=== PATIENT | female | born 1935 | race Caucasian/White ===

== ENCOUNTER → 2018-01-17 | Outpatient (CLI) | payer OTHER, BC ==
[~2018-01-17] VITALS: Ht 154.9 cm; Wt 63.0 kg
[~2018-01-17] MED LIST: ADULT LOW DOSE81 MG PO; BACTRIM DS TAB1 EACH PO; CO Q-10100 MG PO; FISHOIL; FLEXERIL PO; LISINOPRIL20 MG PO; MEDROL DOSPAK21 TAB PO; NORCO 5-325 TA1 EACH PO; PAXIL10 MG PO; VITAMIN B-12500 MCG PO; VITAMIN E400 UNIT PO; VYTORIN 10-101 EACH PO; Vitamin D3 PO
--- NOTE | ~2018-01-17 | HPC ---
[facility] [place] [address] PAIN MANAGEMENT CONSULTATION Name: CHUCKY VILLEDA Room #: REG CHITO SherlyBritanyJosianeBritany#: [id number] Admission: 01/17/18 Attend Phys: Bertrand Smith MD Discharge: Date of : 37 Report #: [id number] THIS REPORT FOR: //name// CC: Bertrand Hough DATE OF SERVICE: 01/17/2018 FOLLOWUP HISTORY: The patient is an 82-year-old female who has been seen in the pain clinic in the past because of lumbar radicular pain. She has pain in her low back with pain that radiates down to the left side. It involves her leg in the area of ankle. She rates it as a 9/10. Describes it as throbbing, shooting, stabbing, constant, rhythmic pain. As you may recall, the patient injured her ankle when she was returning [employer] came back to her neighbors. She has been having pain since she woke up in that following morning. Notes that standing, walking, lying down can be quite problematic. It involves the left lower back with pain radiating down to the left leg with weakness, sensory changes and pain. The patient has returned today with a desire to undergo an epidural steroid injection, which she experienced in the past was helpful. ALLERGIES: No known drug allergies. MEDICATIONS: Bactrim-DS, the patient had kidney stones takes this to prevent infections, CoQ10, 100 mg, aspirin 81 mg, vitamin D3 1000 units daily, Vytorin 10/10, vitamin B12 500 mcg, Paxil 10 mg, Zestril 20 mg. PAIN CLINIC ASSESSMENT/PQRS: 1. History of osteoarthritis involving her low back. The patient is not being treated for rheumatoid arthritis. 2. Height 5 feet 1 inch, weight 139 pounds, BMI is 26. 3. Vital signs: Blood pressure 138/75, respirations 16, room air saturation 98%, pulse 72. Pain intensity 10/30. 4. Fall risk. The patient has not fallen in the last 3 months. 5. Blood thinner. The patient is not on a blood thinning medication. 6. Hypertension. The patient has been treated for hypertension. 7. Opioids: Greater than 6 weeks. The patient is not receiving opioids on a regular basis other than from the pain clinic. 8. Risk assessment tool, low for opioid use. 9. Functional assessment tool . 10. Recreational drug use. The patient denies use of recreational drugs. 11. Tobacco: The patient has never smoked. 12. Alcohol. The patient drinks an occasional glass of wine. PHYSICAL EXAMINATION: GENERAL: The patient is a well-developed, well-nourished 82-year-old female who is alert and oriented x 3. Affect is appropriate. [place] [address] PAIN MANAGEMENT CONSULTATION Name: JERRY VILLEDATA Micah [facility] #: [facility] [id number] Admission: 01/17/18 Attend Phys: Bertrand Smith MD Discharge: Date of : 37 Report #: [id number] HEENT: Normocephalic, atraumatic. Extraocular eye muscles intact. Sclerae nonicteric. Mucous membranes are moist. Hearing is within normal limits. NECK: Without JVD or adenopathy. No bruits. LUNGS: Clear to auscultation without rales or rhonchi. HEART: Regular rate. MUSCULOSKELETAL: Judged to be -5/5 for the major muscle groups in the upper extremity. The patient is without significant scoliosis, kyphosis or lordosis. Lower extremity muscle strength -5/5 for the lower extremities on the right and 4+ on the left lower extremity. The patient experiencing pain that radiates down into her buttocks to the left side of her leg and posterior involving the leg down into her ankle in the L5-S1 distribution. IMPRESSION: 1. Lumbar radiculopathy, L5-S1 distribution similar to that which the patient had experienced about 8 years ago. 2. History of renal stones. 3. Hypertension. 4. Hypercholesterolemia. RECOMMENDATIONS: We discussed treatment options with the patient. They include but are not limited to infection, increased muscle soreness, headache, bleeding, worsening pain, no improvement in pain and the patient elects to proceed. PROCEDURE NOTE: The patient was taken to the procedure area. She was assisted in getting on the examination table. A pillow was placed under her abdomen to bolster improve her positioning. Fluoroscopy using anterior, posterior as well as lateral viewing were implemented. The patient's back had been sterilely prepped with a Betadine solution. A 25-gauge needle was then advanced into the L5-S1 area to anesthetize it. A 17-gauge Tuohy with loss of resistance technique using the left paraspinal approach was undertaken at the appropriate placement 0.25% bupivacaine was infiltrated. A total of 80 mg Depo-Medrol, 40 mg triamcinolone and 2 mL of 0.25% bupivacaine was injected. The patient tolerated the procedure well. There were no complications. Eight seconds fluoroscopy time was used. The patient had a pain score of 7 at the time of discharge. She will follow up in the future as needed. We would like to thank you for letting us participate in her care. We hope she continues to improve. By: [id number] MD aurelia Camargo
[2018-01-17 13:28] VITALS: BP 138/74
== END | disposition home or self-care (01) ==
LOC: PAIN 01-16 10:10
DX: M54.16 Radiculopathy, lumbar region (principal); G89.29 Other chronic pain; I10 Essential (primary) hypertension; E78.00 Pure hypercholesterolemia, unspecified; Z87.442 Personal history of urinary calculi; Z98.890 Other specified postprocedural states; Z79.899 Other long term (current) drug therapy; Z79.82 Long term (current) use of aspirin

== ENCOUNTER → 2018-02-02 | Outpatient (CLI) | payer OTHER, BC ==
[~2018-02-02] VITALS: Ht 154.9 cm; Wt 63.4 kg
--- NOTE | ~2018-02-02 | HPC ---
[facility] [place] [address] PAIN MANAGEMENT CONSULTATION Name: CHUCKY VILLEDA Room #: REG [facility] SherlyBritanyJosiane.#: [id number] Admission: 02/02/18 Attend Phys: Bertrand Smith MD Discharge: Date of : 37 Report #: [id number] THIS REPORT FOR: //name// CC: Bertrand Hough DATE OF SERVICE: 02/02/2018 CHIEF COMPLAINT: Here for an injection in the low back. My pain has returned. HISTORY: The patient is an 82-year-old female who has been followed in the pain clinic because of lumbar radiculopathy. She has undergone epidural steroid injections and gleaned benefits from these. She returns today indicating that she is having some recurrence of pain involving the left leg with pain that is radiating down into the ankle. Notes that her pain has been problematic since 07/2017, involves her low back, left leg and encompasses her left ankle. As you may recall, she was playing a game of [employer]. She took the [employer] game back to the neighbors. When she woke up, the following morning, she noticed increased pain and discomfort, which has continued to be problematic. Rates it as an 8/10. Notes that standing, walking and lying down can exacerbate her pain, sitting improves the pain. There is arrhythmic stabbing, constant discomfort, which she has been experiencing. She has returned today with a desire to undergo another epidural steroid injection. Gleaned greater than 50% improvement at the last injection. ALLERGIES: No known drug allergies. MEDICATIONS: Bactrim-DS, CoQ10, 100 mcg, aspirin 81 mg, vitamin D3 1000 units, Vytorin 10/10, vitamin B12 500 mcg, Paxil 10 mg, Zestril 20 mg. PAIN CLINIC ASSESSMENT/PQRS: 1. History of osteoarthritis. The patient has some arthritic pain involving her low back. She has not been treated for rheumatoid arthritis. 2. Height 5 feet 1 inch, weight 139 pounds, BMI is 26.4. 3. Vital signs: Blood pressure 159/76, pulse 70, respiratory rate 16, room air saturation 98%. 4. Pain intensity 09/29. 5. Fall risk. The patient has not fallen in the last 3 months. 6. Blood thinner. The patient is not on a blood thinning medication. 7. Hypertension. The patient has been treated for hypertension. 8. Opioid therapy greater than 6 weeks. The patient is not on opioid medication regimen. 9. Risk assessment tool is 0, low for opioid use. 10. Functional assessment tool 3470. 11. Recreational drug use. The patient denies use of recreational drugs. 12. Tobacco: The patient denies use of tobacco. [address] [address] PAIN MANAGEMENT CONSULTATION Name: CHUCKY VILLEDA [facility] #: [facility] [id number] Admission: 02/02/18 Attend Phys: Bertrand Smith MD Discharge: Date of : 37 Report #: [id number] 11. Alcohol. The patient drinks 1 alcoholic beverage weekly. PHYSICAL EXAMINATION: GENERAL: The patient is a well-developed, well-nourished white female. Affect is appropriate. Speech is fluent. HEENT: Normocephalic, atraumatic. Extraocular eye muscles intact. Sclerae nonicteric. Mucous membranes are moist. Hearing is within normal limits. NECK: Without adenopathy or JVD. LUNGS: Clear to auscultation without rales or rhonchi. HEART: Regular rate. S1, S2. MUSCULOSKELETAL: Without significant scoliosis, kyphosis or lordosis. Muscle strength judged to be 5/5 for the major muscle groups in the upper extremity and -5 for the lower extremity. The patient has some pain and discomfort in the right as well as some pain in the left lower extremity radiating down into her left leg and into the ankle in the L5-S1 dermatomal distribution. IMPRESSION: 1. Lumbar radiculopathy, L5-S1 distribution similar to what she has experienced in the past 8 years ago. 2. History of renal stones. 3. Hypertension. 4. Hypercholesterolemia. RECOMMENDATIONS: We discussed treatment options with the patient. Risks and benefits of an epidural steroid injection were again reviewed. Possible complications of the procedure were discussed. At this juncture, the patient elects to proceed. PROCEDURE NOTE: The patient was taken to the procedure area. Possible complications, again which could include but are not limited to infection, increased muscle soreness, headache, bleeding, paralysis were reviewed. The patient was assisted in getting on the table. A pillow was placed under her abdomen to bolster improve positioning. Anterior, posterior as well as lateral viewing with the fluoroscopy was introduced. The patient's back was sterilely prepped with a Betadine solution. A 0.25% bupivacaine was injected using a 25-gauge needle. A 17-gauge Tuohy with loss of resistance technique in the midline approach in a left paracentral direction was placed. A total of 80 mg Depo-Medrol, 40 mg triamcinolone and 2 mL of 0.25% bupivacaine was injected. The patient tolerated the procedure well. Pain decreased from 9-5 at the time of discharge. Total of 10 seconds fluoroscopy time was used. The patient will follow up in the pain clinic in the future as needed. We would like to thank you for letting us participate in her care. We hope she continues to improve. By: [id number] Bertrand Smith MD /nt
[2018-02-02 14:30] VITALS: BP 159/76
== END | disposition home or self-care (01) ==
LOC: PAIN 13:38
DX: M54.16 Radiculopathy, lumbar region (principal); I10 Essential (primary) hypertension; E78.00 Pure hypercholesterolemia, unspecified; Z87.442 Personal history of urinary calculi; Z79.82 Long term (current) use of aspirin; Z79.899 Other long term (current) drug therapy; Z98.890 Other specified postprocedural states

== ENCOUNTER → 2018-02-28 | Outpatient (CLI) | payer OTHER, BC ==
[~2018-02-28] VITALS: Ht 154.9 cm; Wt 63.0 kg
[~2018-02-28] MED LIST changes: +HYDROCODON-ACE1 EAC7 PO; +NEURONTIN 300300 M1 PO
--- NOTE | ~2018-02-28 | HPC ---
[facility] [address] [place] [address] PAIN MANAGEMENT CONSULTATION Name: CHUCKY VILLEDA Room #: REG [facility] DEVENSBritany.#: [id number] Admission: 02/28/18 Attend Phys: Bertrand Smith MD Discharge: Date of : 37 Report #: [id number] THIS REPORT FOR: //name// CC: Bertrand Hough MD DATE OF SERVICE: 02/28/2018 CHIEF COMPLAINT: "The last injection was not as effective as I would like for it to be." HISTORY OF PRESENT ILLNESS: The patient is an 83-year-old female who has been followed in the Pain Clinic. She has undergone epidural steroid injections. Initially, she noted and gleaned benefits from the injection. At the last injection, which is the third one in this series, the patient noted less pain relief and continues to have pain that radiates down into her leg. She has had back pain, which has been quite problematic since July 2017. She has noted problems with her leg after taking a game back to her neighbor. The game was [employer]odk[employer]. Since that time, she has had pain, which has been increasingly uncomfortable. She rates it today as a 9/10. She has been experiencing some stabbing, constant pain. Notes that when she walks, pain is quite problematic. She is having pain that radiates down into her left buttocks, goes down into the left leg and involves her calf. Notes that standing and walking can be quite problematic. ALLERGIES: No known drug allergies. CURRENT MEDICATIONS: Bactrim-DS, CoQ10 100 mcg, aspirin 81 mg, vitamin D3 1000 units, Vytorin 10/10, vitamin B12 500 mcg, Paxil 10 mg, and Zestril 20 mg. PAIN CLINIC ASSESSMENT AND PQRS: 1. History of osteoarthritis: The patient has some arthritic changes involving her low back. She is not being treated for rheumatoid arthritis. 2. Height 5 feet 1 inch, weight 138 pounds, BMI is 26. 3. Vital signs: Blood pressure 138/73, pulse 78, respiratory rate 16, room air saturation 97%. 4. Pain intensity: 9/10. 5. Fall risk: The patient has not fallen in the last 3 months. 6. Blood thinner: The patient is not on a blood thinning medication. 7. History of hypertension: The patient is being treated for hypertension. 8. Opioids: The patient is not receiving opioid medication. 9. Risk assessment tool: 0/low for opioid use. 10. Functional assessment tool: 34/70. 11. Recreational drug use: The patient denies use of recreational drugs. 12. Tobacco: The patient has never smoked. [address] [address] PAIN MANAGEMENT CONSULTATION Name: JOSUÉ VILLEDAANITA Micah Room #: REG [facility] Girish#: [id number] Admission: 02/28/18 Attend Phys: Bertrand Smith MD Discharge: Date of : 37 Report #: [id number] 13. Alcohol: The patient drinks 1-2 alcoholic beverages weekly. PHYSICAL EXAMINATION: GENERAL: The patient is a well-developed, well-nourished, white female. Appears her stated age. She is alert and oriented x 3. Her affect is appropriate. Speech is fluent. HEENT: Normocephalic, atraumatic. Extraocular eye muscles intact. Sclerae nonicteric. Mucous membranes are moist. NECK: Without adenopathy or JVD. LUNGS: Clear to auscultation without rales or rhonchi. HEART: Regular rate, S1 and S2. MUSCULOSKELETAL: Without significant scoliosis, kyphosis or lordosis. The patient has pain and discomfort in the upper extremity, 5-/5 for the major muscle groups in the lower extremity. The patient is experiencing pain that radiates down in the L5-S1 dermatomal distribution. She has undergone epidural injections and continues to note some weakness, pain, and discomfort in the left leg. IMPRESSION: 1. Lumbar radiculopathy, history of L5-S1 dermatomal distribution, similar to that which she experienced 8 years ago. 2. History of renal stones. 3. Hypertension. 4. Hypercholesterolemia. RECOMMENDATIONS: We discussed treatment options with the patient. At this juncture, she underwent her third epidural steroid injection. Notes that the pain continues to be problematic, rates it at a 9/10. At this juncture, she would like to try other options to help control her pain. We discussed the risk and benefits of different medications. I explained that opioid medications can be helpful, but could cause some dependence as well as problems with tolerance and development of dependence. She has not used gabapentin. We discussed the benefits and use of medications like gabapentin to help with nerve pain. At this juncture, we will start her out on a low dose and increase it as she is able to tolerate it. Hopefully, the patient, with use of hydrocodone 5 mg 1 p.o. t.i.d. will find pain relieved and be able to continue with activities of daily living without problems. A script for hydrocodone 1 mg p.o. t.i.d. has been written. She also has been given medication for gabapentin 30 tablets 300 mg 1 p.o. at bedtime and we will continue to increase this as she is able to tolerate it. Hopefully, she will find that there is benefit from this medication and quell in the pain and discomfort she is experiencing. [facility] [address] [place] [address] PAIN MANAGEMENT CONSULTATION Name: CHUCKY VILLEDA Room #: REG [facility] Girish#: [id number] Admission: 02/28/18 Attend Phys: Bertrand Smith MD Discharge: Date of : 37 Report #: [id number] We would like to thank you for letting us participate in her care. We hope she continues to improve. By: [id number] Bertrand Smith MD /nt
[2018-02-28 09:57] VITALS: BP 138/73
--- NOTE | 2018-02-28 10:05 | NUR ---
Pain Clinic Assessment: 1. History of Osteoarthritis: BACK History of Rheumatoid Arthritis: Not Applicable 2. Height: 5 ft. 1 in. 154.9 cm. Weight: 138.8 lb. oz. 62.959 kg. Patient's BMI: 26.2 3. Vital Signs: BP: 138/73 Pulse: 78 Resp: 16 Temp: 02 Sat: 97 ECG Mon: 4. Pain Intensity: 9 5. Fall Risk: Dizziness: N Needs help standing or walking: N Fallen in the last 3 months: N Fall risk comments: 6. Patient on Blood Thinner: None 7. History of Hypertension: Y 8. Opioid Therapy greater than 6 weeks: N Opiate Contract Signed: 9. Risk Assessment Tool Provided: ONORA 10. Functional Assessment Tool: 11. Recreational Drug Use: Never Drug Type: Tobacco Use: Never Smoker Tobacco Type: Amount or Packs/day: How Many Years: Alcohol Use: Yes Frequency: Weekly Quant: 1-2
== END ==
LOC: PAIN 06:56
DX: M54.16 Radiculopathy, lumbar region (principal); I10 Essential (primary) hypertension; E78.00 Pure hypercholesterolemia, unspecified; Z87.442 Personal history of urinary calculi

== ENCOUNTER → 2018-06-13 | Outpatient (CLI) | payer OTHER ==
[~2018-06-13] VITALS: Ht 154.9 cm; Wt 57.5 kg
[~2018-06-13] MED LIST changes: +MEDROLDOSEPACK PO
[2018-06-13 14:40] VITALS: BP 122/71
--- NOTE | 2018-06-13 14:51 | NUR ---
Pain Clinic Assessment: 1. History of Osteoarthritis: BACK History of Rheumatoid Arthritis: Not Applicable 2. Height: 5 ft. 1 in. 154.9 cm. Weight: 126.8 lb. oz. 57.516 kg. Patient's BMI: 24.0 3. Vital Signs: BP: 122/71 Pulse: 70 Resp: 14 Temp: 02 Sat: 99 ECG Mon: 4. Pain Intensity: 0 5. Fall Risk: Dizziness: N Needs help standing or walking: N Fallen in the last 3 months: N Fall risk comments: 6. Patient on Blood Thinner: None 7. History of Hypertension: Y 8. Opioid Therapy greater than 6 weeks: N Opiate Contract Signed: 9. Risk Assessment Tool Provided: ONORA 10. Functional Assessment Tool: 11. Recreational Drug Use: Never Drug Type: Tobacco Use: Never Smoker Tobacco Type: Amount or Packs/day: How Many Years: Alcohol Use: Yes Frequency: Quant:
== END ==
LOC: PAIN 03-30 09:33
DX: M54.42 Lumbago with sciatica, left side (principal); Z72.89 Other problems related to lifestyle; Z79.891 Long term (current) use of opiate analgesic

== ENCOUNTER → 2018-07-13 | Outpatient (CLI) | payer OTHER ==
[~2018-07-13] VITALS: Ht 154.9 cm; Wt 57.6 kg
[2018-07-13 10:57] VITALS: BP 128/69
--- NOTE | 2018-07-13 11:02 | NUR ---
Pain Clinic Assessment: 1. History of Osteoarthritis: BACK History of Rheumatoid Arthritis: Not Applicable 2. Height: 5 ft. 1 in. 154.9 cm. Weight: 127.0 lb. oz. 57.607 kg. Patient's BMI: 24.0 3. Vital Signs: BP: 128/69 Pulse: 70 Resp: 14 Temp: 02 Sat: 98 ECG Mon: 4. Pain Intensity: 7-8 5. Fall Risk: Dizziness: N Needs help standing or walking: N Fallen in the last 3 months: N Fall risk comments: 6. Patient on Blood Thinner: None 7. History of Hypertension: Y 8. Opioid Therapy greater than 6 weeks: N Opiate Contract Signed: 9. Risk Assessment Tool Provided: CYNDI 10. Functional Assessment Tool: 11. Recreational Drug Use: Never Drug Type: Tobacco Use: Never Smoker Tobacco Type: Amount or Packs/day: How Many Years: Alcohol Use: Yes Frequency: Weekly Quant: ONE WINE A WEEK
--- NOTE | 2018-07-25 08:16 | HPC ---
[facility] [address] [address] PAIN MANAGEMENT CONSULTATION Name: CHUCKY VILLEDA [facility] [id number] Admission: 07/13/18 ������������������ Attend Phys: Bertrand Smith MD Discharge: ������������������ Date of : 39 Report #: [id number] THIS REPORT FOR: //name// CC: Bertrand Hough DATE OF SERVICE: 07/13/2018 CHIEF COMPLAINT: "Low back pain in the left leg and calf, it flared up after yardwork." HISTORY: The patient is an 83-year-old female, who has been followed in the Pain Clinic because of lumbar radiculopathy. Epidural steroid injection had been beneficial in the past. Over the past week, she had engaged in cleaning her yard. After the yardwork, she noticed an increase in her pain and discomfort. She is experiencing pain that is radiating down into the lower portion of her back and involving her left calf. She describes it as a burning, aching discomfort. She rates it as 7 to 8 out of 10. It is exacerbated with standing, walking, and other activities of daily living. The pain improves somewhat with use of medication as well as with sitting. She has returned today for another epidural injection. Denies any bowel or bladder dysfunction. ALLERGIES: No known drug allergies. CURRENT MEDICATIONS: Bactrim-DS, hydrocodone 5/325 one p.o. q. 4-6 hours daily, gabapentin 300 mg 1 p.o. t.i.d., CoQ10 100 mg, aspirin 81 mg, vitamin D3, Vytorin 10/10, vitamin B12 500 mcg, Paxil 10 mg, Zestril 20 mg. PAIN CLINIC ASSESSMENT AND PQRS: 1. The patient has some arthritic changes involving her low back. She is not being treated for rheumatoid arthritis. 2. Height 5 feet 1 inch, weight 127 pounds, BMI 24. 3. Vital Signs: Blood pressure 128/69, pulse 70, respiratory rate 18, room air saturation 98%. 4. Pain intensity: 08/29. 5. Fall history: The patient has not fallen in the last 3 months. 6. Blood thinner: The patient is not on a blood thinning medication. 7. Hypertension: The patient is being treated for hypertension. 8. Opioids greater than 6 weeks: The patient is not on an opioid contract. 9. Risk assessment tool: Low for opioid use. 10. Functional assessment tool: 34/70. 11. Recreational drug use: The patient denies use of recreational drugs. 12. Tobacco: The patient has never smoked. 13. Alcohol: The patient denies anything other than occasional alcoholic beverage. [address] [address] PAIN MANAGEMENT CONSULTATION Name: JOSUÉ VILLEDAANITA Micah Room #: REG [facility] Girish#: [id number] Admission: 07/13/18 ������������������ Attend Phys: Bertrand Smith MD Discharge: ������������������ Date of : 39 Report #: [id number] PHYSICAL EXAMINATION: GENERAL: The patient is a well-developed, well-nourished, white female. She appears her stated age. She is alert and oriented x 3. Her affect is appropriate. Speech is fluent. HEENT: Normocephalic, atraumatic. Extraocular eye muscles intact. Sclerae are nonicteric. Mucous membranes are moist. NECK: Without adenopathy or JVD. LUNGS: Clear to auscultation without rhonchi or rales. ABDOMEN: Nontender. Bowel sounds present. HEART: Regular rate. S1 and S2. MUSCULOSKELETAL: Without significant scoliosis, kyphosis or lordosis. The patient has some pain and discomfort in the upper extremity, but muscle strength is 5-/5 for the major muscle groups of the upper extremity. The patient is experiencing pain that is radiating down into her low back area, principally in the left leg at this juncture. It radiates into the calf in the L5-S1 dermatomal distribution with continued changes of sensory including numbness and tingling. IMPRESSION: 1. Lumbar radicular pain at L5-S1 dermatomal distribution, the left leg principally involved. 2. Increase in pain in low back after sitting on the floor. Her dog gets seizure. She sat down with the dog on the floor and had worsening of her pain. 3. History of renal stones. 4. History of hypertension. 5. Hypercholesterolemia. RECOMMENDATIONS: We discussed treatment options with the patient. They include conservative treatment or another epidural steroid injection. The patient's pain is problematic. It has risen to the level that is impeding her ability to engage in activities without significant discomfort. We will proceed with an epidural steroid injection. Risks and benefits of the procedure were again discussed. They include but are not limited to infection, worsening of pain, no improvement in pain, nerve damage, and muscle soreness. The patient elects to proceed. PROCEDURE NOTE: The patient was taken to the procedure area. She was then assisted in getting on the examination table. Her back was sterilely prepped with a betadine solution. Fluoroscopy using anterior and posterior viewing was implemented. Lateral view was undertaken as well. The patient's back was sterilely prepped. At the L5-S1 area, 0.25% bupivacaine was infiltrated using a midline approach. The left paramedian direction was undertaken. A 0.25% bupivacaine was infiltrated to numb the area. A 17-gauge Tuohy with loss of resistance technique was used to gain access to the epidural space. There was no CSF, heme or paresthesia. A total of 80 mg Depo-Medrol, 40 mg triamcinolone, and 2 mL of 0.25% bupivacaine was injected. The patient remained in the Pain [facility] [address] [place] [address] PAIN MANAGEMENT CONSULTATION Name: RONALCHUCKY Room #: [facility]any[facility]any#: [id number] Admission: 07/13/18 ������������������ Attend Phys: Bertrand Smith MD Discharge: ������������������ Date of : 39 Report #: [id number] Clinic for an appropriate amount of time. About 12 seconds fluoroscopy time was used. We would like to thank you for letting us participate in her care. We hope she continues to improve. ��������������������������������������������� <ELECTRONICALLY SIGNED> ���������������������������������������� By: Bertrand Smith MD ��������������������������������������������� 07/25/18 0816 [id number] [id number] Bertrand Smith MD /nt
== END | disposition home or self-care (01) ==
LOC: PAIN 06:50
DX: M54.16 Radiculopathy, lumbar region (principal); G89.29 Other chronic pain; I10 Essential (primary) hypertension; E78.00 Pure hypercholesterolemia, unspecified; Z87.442 Personal history of urinary calculi; Z98.890 Other specified postprocedural states; Z79.899 Other long term (current) drug therapy; Z79.82 Long term (current) use of aspirin; Z79.891 Long term (current) use of opiate analgesic